=== PATIENT | female | born 1990 | race Caucasian/White ===

== ENCOUNTER 2019-02-11 14:52 | Emergency (ER) | payer BC ==
--- NOTE | 2019-02-11 15:24 | ERPHSYRPT ---
- History of Present Illness Time Seen by Provider: 02/11/19 15:22 Source: patient Exam Limitations: no limitations Patient Subjective Stated Complaint: pt here for pain to both arms from shoulder that radiates to middle of back for 4 days, no injury, no cough or fever Triage Nursing Assessment: pt alert, walked in, resp easy, skin w/d/p. no bruising or abrasions noted, moves all ext well Physician History: pt here for pain to both arms from shoulder that radiates to middle of back for 4 days, no injury, no cough or fever. No heavy pressure type of chest pain Timing/Duration: today Associated Symptoms: denies symptoms Allergies/Adverse Reactions: Penicillins Allergy (Verified 02/11/19 15:11) Rash Home Medications: No Home Meds [No Home Meds] 02/16/14 [History] Hx Tetanus, Diphtheria Vaccination/Date Given: Yes Hx Influenza Vaccination/Date Given: No Hx Pneumococcal Vaccination/Date Given: No Immunizations Up to Date: Yes - Review of Systems Constitutional: No Fever, No Chills Eyes: No Symptoms Ears, Nose, & Throat: No Symptoms Respiratory: No Cough, No Dyspnea Cardiac: No Chest Pain, No Edema, No Syncope Abdominal/Gastrointestinal: No Abdominal Pain, No Nausea, No Vomiting, No Diarrhea Genitourinary Symptoms: No Dysuria Musculoskeletal: Other (pain and tingling and numbness on both arms going to both hands), No Back Pain, No Neck Pain Skin: No Rash Neurological: No Dizziness, No Focal Weakness, No Sensory Changes Psychological: No Symptoms Endocrine: No Symptoms All Other Systems: Reviewed and Negative - Past Medical History Pertinent Past Medical History: No Neurological History: No Pertinent History ENT History: No Pertinent History Cardiac History: No Pertinent History Respiratory History: No Pertinent History Endocrine Medical History: No Pertinent History Musculoskeletal History: No Pertinent History GI Medical History: No Pertinent History History: No Pertinent History Psycho-Social History: No Pertinent History Female Reproductive Disorders: No Pertinent History - Past Surgical History Past Surgical History: No Neuro Surgical History: No Pertinent History Cardiac: No Pertinent History Respiratory: No Pertinent History Gastrointestinal: No Pertinent History Genitourinary: No Pertinent History Musculoskeletal: No Pertinent History Female Surgical History: No Pertinent History - Social History Smoking Status: Current every day smoker How long have you smoked: 6 Exposure to second hand smoke: Yes Drug Use: none Patient Lives Alone: No - Female History Hx Last Menstrual Period: january Hx Now: No - Nursing Vital Signs Nursing Vital Signs: Initial Vital Signs Temperature 99.3 F 02/11/19 15:06 Pulse Rate 97 H 02/11/19 15:06 Respiratory Rate 16 02/11/19 15:06 Blood Pressure 144/92 02/11/19 15:06 O2 Sat by Pulse Oximetry 99 02/11/19 15:06 Pain Scale Pain Intensity 5 - Physical Exam General Appearance: no apparent distress, alert Eye Exam: PERRL/EOMI, eyes nml inspection Ears, Nose, Throat Exam: normal ENT inspection, TMs normal, pharynx normal, moist mucous membranes Neck Exam: normal inspection, non-tender, supple, full range of motion Respiratory Exam: normal breath sounds, lungs clear, No respiratory distress Cardiovascular Exam: regular rate/rhythm, normal heart sounds, normal peripheral pulses Gastrointestinal/Abdomen Exam: soft, normal bowel sounds, No tenderness, No mass Back Exam: normal inspection, normal range of motion, No CVA tenderness, No vertebral tenderness Extremity Exam: normal inspection, normal range of motion, pelvis stable Neurologic Exam: alert, oriented x 3, cooperative, normal mood/affect, nml cerebellar function, nml station & gait, sensation nml, No motor deficits Skin Exam: normal color, warm, dry, No rash Lymphatic Exam: No adenopathy SpO2: 99 - Course Nursing assessment & vital signs reviewed: Yes EKG Interpreted by Me: Sinus Rhythm Ordered Tests: Active Orders 24 hr Category Date Time Status EKG-ER Only STAT Care 02/11/19 15:14 Active CBC W DIFF Stat Lab 02/11/19 15:29 Completed CMP Stat Lab 02/11/19 15:29 Completed Manual Differential NC Stat Lab 02/11/19 15:29 Completed TROPONIN Stat Lab 02/11/19 15:29 Completed Lab/Rad Data: Laboratory Result Diagrams 02/11/19 15:29 02/11/19 15:29 Laboratory Results 02/11/19 02/11/19 Range/Units 15:29 15:29 WBC 10.4 (4.0-10.5) K/mm3 RBC 4.82 (4.1-5.4) M/mm3 Hgb 14.5 (12.0-16.0) gm/dl Hct 44.8 (35-47) % MCV 92.9 (78-100) fl MCH 30.1 (26-32) pg MCHC 32.4 (32-36) g/dl RDW 13.8 (11.5-14.0) % Plt Count 234 (150-450) K/mm3 MPV 11.3 H (6-9.5) fl Sodium 140 (137-145) mmol/L Potassium 4.5 (3.5-5.1) mmol/L Chloride 109 H (98-107) mmol/L Carbon Dioxide 24 (22-30) mmol/L Anion Gap 12.2 (5-15) MEQ/L BUN 13 (7-17) mg/dL Creatinine 0.81 (0.52-1.04) mg/dL Estimated GFR > 60.0 ML/MIN Glucose 107 H (74-106) mg/dL Calcium 9.8 (8.4-10.2) mg/dL Total Bilirubin 0.30 (0.2-1.3) mg/dL AST 15 (14-36) U/L ALT 22 (0-35) U/L Alkaline Phosphatase 70 (38-126) U/L Troponin I < 0.012 (0.000-0.034) ng/mL Serum Total Protein 8.0 (6.3-8.2) g/dL Albumin 4.2 (3.5-5.0) g/dL - Progress Progress: improved, pain not gone completely Counseled pt/family regarding: lab results, diagnosis, need for follow-up - Departure Departure Disposition: Home Clinical Impression: Pain in both upper arms Condition: Stable Critical Care Time: No Referrals: ELDA FREITAS [Primary Care Provider] - Additional Instructions: During your these, ER visits we have ruled out serious cause of bilateral arm pain, as well as we also have ruled out any heart-related problems. Please followup with your primary care physician for further workup. PRIYANKA RUIZ GRAEME GAO was seen on 02/11/19 n the Emergency Room. At that time you were treated for an emergent condition, during your visit Laboratory, Radiology and/or other procedures may have been ordered. It is very important that you follow-up with your Primary Care Physician ELDA FREITAS within the next 24-48 hours to review your Emergency Room visit and the final results of testing that was ordered. Some test results such as Urine Cultures, Blood Cultures, and other cultures if ordered will not be finalized for 24-48 hours. If you do not have a Primary Care Provider please call the medical records department at [phone] ext [phone] to obtain a copy of your results or you may sign into our patient portal to obtain these results by visiting us @ [email or web address] and completing the following steps: 1. Click on the Patient Portal link 2. Click the Patient Self Enrollment Link to complete the enrollment form and entering your 3. Once the enrollment form is completed you will receive an email with a temporary ID and password at the email address you provided. 4. Next choose a user name and password. Your user name must be at least 4 characters long and your password must be at least 4 characters long. 5. Choose a security question from the list and provide your answer to the question. If you already have signed into the Health Portal you may access your Health Care Information 23/05 by the following steps: 1. Login to our website @ [email or web address] 2. Enter your original user name and password. FAQS The [facility] Health Portal is an online tool that contains your Lab Results, Radiology Reports, Visit History, Discharge Instructions and Health Summary Lab and Radiology Results will not be available for 72 hours on the portal. The Portal is a secure site, passwords are encryted and URLs are re-written so they cannot be copied and pasted. You and authorized family members are the only ones who can access your Portal. Also there is a timeout feature that protects your information if you leave the Portal page open. If you have technical difficulty please use the Contact Us link on the page this will allow you to submit any questions you have regarding the Portal or you may contact the Medical Record Department at [phone] ext [phone].
[2019-02-11 15:48] LABS: Hematocrit 44.8 % (35-47); Hemoglobin 14.5 gm/dl (12.0-16.0); Mean Cell Volume 92.9 fl (78-100); Mean Corpuscular Hemoglobin 30.1 pg (26-32); Mean Corpuscular Hgb Concent. 32.4 g/dl (32-36); Mean Platelet Volume 11.3 fl (6-9.5); Platelet Count 234 K/mm3 (150-450); Red Blood Count 4.82 M/mm3 (4.1-5.4); Red Cell Distribution Width 13.8 % (11.5-14.0); White Blood Count 10.4 K/mm3 (4.0-10.5)
[2019-02-11 15:53] LABS: ALBUMIN 4.2 g/dL (3.5-5.0); ALKALINE PHOSPHATASE 70 U/L (38-126); ANION GAP 12.2 MEQ/L (5-15); BLOOD UREA NITROGEN 13 mg/dL (7-17); CHLORIDE 109 mmol/L (98-107); Calcium 9.8 mg/dL (8.4-10.2); Carbon Dioxide 24 mmol/L (22-30); Creatinine 1 0.81 mg/dL (0.52-1.04); Glucose 107 mg/dL (74-106); Potassium 4.5 mmol/L (3.5-5.1); SGOT/AST 15 U/L (14-36); SGPT/ALT 22 U/L (0-35); SODIUM 140 mmol/L (137-145)
[2019-02-11 15:57] LABS: TROPONIN < 0.012 ng/mL (0.000-0.034)
[2019-02-11 16:18] VITALS: BP 114/75; PULSE 88; O2SAT 98
[2019-02-11 16:28] LABS: BAND 2 % (0.0-2.0); Eosinophil 1 % (0.00-3.0); Lymphocytes 28 % (24-44); Monocyte 7 % (0.0-12.0); Neutrophils 62 % (36.0-66.0); Total Cells Counted 100
[2019-02-11 16:30] LABS: Platelet Estimate NORMAL (NORMAL)
== END 2019-02-11 16:18 | disposition home or self-care (01) ==
LOC: ED 14:52
DX: M79.622 Pain in left upper arm (principal); M79.621 Pain in right upper arm
CPT/HCPCS: 36415; 80053; 84484; 85025; 93005; 99284

== ENCOUNTER 2019-02-23 11:40 | Emergency (ER) | payer BC ==
[2019-02-23 12:29] LABS: BASOPHIL % 0.3 % (0.0-0.4); Basophil (Absolute #) 0.04 (0-0.4); Eosinophil % 0.5 % (0.00-5.0); Eosinophil (Absolute #) 0.07 (0-0.5); Granulocyte Absolute (ANC) 10.52 (1.4-6.9); Hematocrit 45.4 % (35-47); Hemoglobin 14.9 gm/dl (12.0-16.0); Lymphocytes % 18.8 % (24.0-44.0); Mean Cell Volume 91.2 fl (78-100); Mean Corpuscular Hemoglobin 29.9 pg (26-32); Mean Corpuscular Hgb Concent. 32.8 g/dl (32-36); Mean Platelet Volume 10.2 fl (6-9.5); Monocyte (Absolute #) 0.61 (0.0-1.3); Monocytes % 4.4 % (0.0-12.0); Platelet Count 316 K/mm3 (150-450); Red Blood Count 4.98 M/mm3 (4.1-5.4); Red Cell Distribution Width 13.6 % (11.5-14.0); White Blood Count 13.8 K/mm3 (4.0-10.5)
[2019-02-23 12:37] LABS: ALBUMIN 4.6 g/dL (3.5-5.0); ALKALINE PHOSPHATASE 78 U/L (38-126); ANION GAP 18.4 MEQ/L (5-15); BLOOD UREA NITROGEN 13 mg/dL (7-17); CHLORIDE 105 mmol/L (98-107); Calcium 10.3 mg/dL (8.4-10.2); Carbon Dioxide 22 mmol/L (22-30); Creatinine 1 0.74 mg/dL (0.52-1.04); Glucose 103 mg/dL (74-106); Potassium 4.1 mmol/L (3.5-5.1); SGOT/AST 21 U/L (14-36); SGPT/ALT 26 U/L (0-35); SODIUM 141 mmol/L (137-145); Total Protein 8.9 g/dL (6.3-8.2)
[2019-02-23 13:54] VITALS: O2SAT 97
[2019-02-23 13:56] LABS: Appearance SLIGHTLY CLOUDY (CLEAR); Bacteria FEW /HPF (NEGATIVE); Bilirubin NEGATIVE (NEGATIVE); Blood LARGE Ery/ul (0-5); Epithelial Cells RARE /HPF (FEW); Glucose NEGATIVE (NEGATIVE); Ketones NEGATIVE (NEGATIVE); Leukocyte Esterase MODERATE (NEGATIVE); Mucus SLIGHT /HPF (NEGATIVE); Nitrite NEGATIVE (NEGATIVE); Protein,Urine Dip 30 (Negative); Specific Gravity 1.017 (1.005-1.025); Urobilinogen NEGATIVE mg/dL (0-1)
[2019-02-23 13:58] LABS: RBC >101 /HPF (0-2)
[2019-02-23] MEDS ORDERED: ROCEPHIN 1 Gm-D5w 50 ml Bag** 1 G/50 ML IVPB IV STA (14:09)
[2019-02-23] MEDS ORDERED: Rocephin 1000 MG INJ IM ONE (14:12)
[2019-02-23] MEDS ORDERED: Rocephin 1000 MG INJ ONE (14:15)
--- NOTE | 2019-02-23 15:00 | ERPHSYRPT ---
- History of Present Illness Source: patient Exam Limitations: no limitations Patient Subjective Stated Complaint: states feeling "Blah" started 2 new meds on (lisinopril,citalopram) nausea with no vomiting. has had nausea witn no vomiting. Triage Nursing Assessment: alert and oriented, tearful. states started new meds and now is feeling 'Blah" states has had burning in her belly.. started diclofenac for her back pain. denies urinary symptoms.. no fever. Physician History: Pt states, she is not feeling well. She states, had palpitations, fatigue and feeling "blah". Pt denies F/C/S. No chest discomfort. Pt denies N/V/D. Has some abdominal discomfort. Timing/Duration: today Activites at Onset: none Quality: burning Onset Location: abdominal pain Severity of Pain-Max: mild Severity of Pain-Current: mild Prior abdominal problems: none Modifying Factors: Improves With: nothing Associated Symptoms: abdominal pain Allergies/Adverse Reactions: Penicillins Allergy (Verified 02/11/19 15:11) Rash Home Medications: No Home Meds [No Home Meds] 02/16/14 [History] Hx Tetanus, Diphtheria Vaccination/Date Given: Yes Hx Influenza Vaccination/Date Given: No Hx Pneumococcal Vaccination/Date Given: No - Review of Systems Constitutional: Lethargy, Malaise Eyes: No Symptoms Ears, Nose, & Throat: No Symptoms Respiratory: No Cough, No Dyspnea Cardiac: No Chest Pain, No Edema, No Syncope Abdominal/Gastrointestinal: Abdominal Pain, No Nausea, No Vomiting, No Diarrhea Genitourinary Symptoms: No Dysuria Musculoskeletal: No Back Pain, No Neck Pain Neurological: No Dizziness, No Focal Weakness, No Sensory Changes Psychological: Anxiety, Depression - Past Medical History Pertinent Past Medical History: Yes Neurological History: No Pertinent History ENT History: No Pertinent History Cardiac History: Hypertension Respiratory History: No Pertinent History Endocrine Medical History: No Pertinent History Musculoskeletal History: No Pertinent History GI Medical History: No Pertinent History History: No Pertinent History Psycho-Social History: Anxiety, Depression Female Reproductive Disorders: No Pertinent History - Past Surgical History Past Surgical History: Yes Neuro Surgical History: No Pertinent History Cardiac: No Pertinent History Respiratory: No Pertinent History Gastrointestinal: No Pertinent History Genitourinary: No Pertinent History Musculoskeletal: No Pertinent History Female Surgical History: No Pertinent History - Social History Smoking Status: Current every day smoker How long have you smoked: 6 Exposure to second hand smoke: No Drug Use: none Patient Lives Alone: No - Female History Hx Last Menstrual Period: now Hx Now: No - Nursing Vital Signs Nursing Vital Signs: Initial Vital Signs Temperature 97.8 F 02/23/19 12:02 Pulse Rate 112 H 02/23/19 12:02 Respiratory Rate 18 02/23/19 12:02 Blood Pressure 149/102 02/23/19 12:02 O2 Sat by Pulse Oximetry 98 02/23/19 12:02 Pain Scale Pain Intensity 3 - Physical Exam General Appearance: mild distress Eye Exam: PERRL/EOMI, eyes nml inspection Ears, Nose, Throat Exam: normal ENT inspection, TMs normal, pharynx normal, moist mucous membranes Neck Exam: normal inspection, non-tender, supple, full range of motion Respiratory Exam: normal breath sounds, lungs clear, No respiratory distress Cardiovascular Exam: regular rate/rhythm, normal heart sounds, normal peripheral pulses, tachycardia Gastrointestinal/Abdomen Exam: soft, No tenderness, No mass Extremity Exam: normal inspection, normal range of motion, pelvis stable Neurologic Exam: alert, oriented x 3, cooperative, die try out worker II-XII nml as tested, normal mood/affect, sensation nml, No motor deficits SpO2: 97 - Course Nursing assessment & vital signs reviewed: Yes Ordered Tests: Active Orders 24 hr Category Date Time Status CBC W DIFF Stat Lab 02/23/19 12:18 Completed CMP Stat Lab 02/23/19 12:18 Completed Urinalysis with Microscopy Stat Lab 02/23/19 13:41 Completed Medication Summary Discontinued Medications Generic Name Dose Route Start Last Admin Trade Name Heather PRN Reason Stop Dose Admin Ceftriaxone Sodium 1,000 mg 02/23/19 14:12 02/23/19 14:24 Rocephin 1000 Mg Inj IM 02/23/19 14:13 1,000 mg STAT ONE Administration Ceftriaxone Sodium Confirm 02/23/19 14:15 Rocephin 1000 Mg Inj Administered 02/23/19 14:16 Dose 1,000 mg .ROUTE .STK-MED ONE Ceftriaxone Sodium/Dextrose 1 g in 50 mls @ 100 mls/hr 02/23/19 14:09 14:13 Rocephin 1 Gm-D5w 50 Ml Bag IV 02/23/19 14:38 Not Given STAT STA Lab/Rad Data: Laboratory Result Diagrams 02/23/19 12:18 02/23/19 12:18 Laboratory Results 02/23/19 02/23/19 02/23/19 Range/Units 13:41 12:18 12:18 WBC 13.8 H (4.0-10.5) K/mm3 RBC 4.98 (4.1-5.4) M/mm3 Hgb 14.9 (12.0-16.0) gm/dl Hct 45.4 (35-47) % MCV 91.2 (78-100) fl MCH 29.9 (26-32) pg MCHC 32.8 (32-36) g/dl RDW 13.6 (11.5-14.0) % Plt Count 316 (150-450) K/mm3 MPV 10.2 H (6-9.5) fl Gran % 76.0 H (36.0-66.0) % Eos # (Auto) 0.07 (0-0.5) Absolute Lymphs (auto) 2.60 (1.0-4.6) Absolute Monos (auto) 0.61 (0.0-1.3) Lymphocytes % 18.8 L (24.0-44.0) % Monocytes % 4.4 (0.0-12.0) % Eosinophils % 0.5 (0.00-5.0) % Basophils % 0.3 (0.0-0.4) % Absolute Granulocytes 10.52 H (1.4-6.9) Basophils # 0.04 (0-0.4) Sodium 141 (137-145) mmol/L Potassium 4.1 (3.5-5.1) mmol/L Chloride 105 (98-107) mmol/L Carbon Dioxide 22 (22-30) mmol/L Anion Gap 18.4 H (5-15) MEQ/L BUN 13 (7-17) mg/dL Creatinine 0.74 (0.52-1.04) mg/dL Estimated GFR > 60.0 ML/MIN Glucose 103 (74-106) mg/dL Calcium 10.3 H (8.4-10.2) mg/dL Total Bilirubin 0.50 (0.2-1.3) mg/dL AST 21 (14-36) U/L ALT 26 (0-35) U/L Alkaline Phosphatase 78 (38-126) U/L Serum Total Protein 8.9 H (6.3-8.2) g/dL Albumin 4.6 (3.5-5.0) g/dL Urine Color YELLOW (YELLOW) Urine Appearance SLIGHTLY CLOUDY (CLEAR) Urine pH 5.0 (5-6) Ur Specific [place] 1.017 (1.005-1.025) Urine Protein 30 (Negative) Urine Ketones NEGATIVE (NEGATIVE) Urine Blood LARGE (0-5) Stevo/ul Urine Nitrite NEGATIVE (NEGATIVE) Urine Bilirubin NEGATIVE (NEGATIVE) Urine Urobilinogen NEGATIVE (0-1) mg/dL Ur Leukocyte Esterase MODERATE (NEGATIVE) Urine WBC (Auto) 11-15 (0-5) /HPF Urine RBC (Auto) >101 (0-2) /HPF U Epithel Cells (Auto) RARE (FEW) /HPF Urine Bacteria (Auto) FEW (NEGATIVE) /HPF Urine Mucus (Auto) SLIGHT (NEGATIVE) /HPF Urine Glucose NEGATIVE (NEGATIVE) mg/dL - Progress Progress: improved Air Movement: good Progress Note: 02/23/19 15:02 Pt had lab work done, that showed elevated WBCs. Urinalysis showed UTI. Pt did get Rocephin IM, and will get a prescription for Omnicef BID, e-scribed. Pt is cleared to d/c to home, and should f/u with her PCP in a week. Blood Culture(s) Obtained: No Antibiotics given: Yes Will see patient in: office Counseled pt/family regarding: need for follow-up - Departure Departure Disposition: Home Clinical Impression: UTI (urinary tract infection) Condition: Stable Critical Care Time: No Referrals: ELDA FREITAS [Primary Care Provider] - Additional Instructions: Finish ABX as ordered. F/U with PCP in a week. Prescriptions: Cefdinir [Omnicef] 300 mg PO BID 7 Days #14 capsule
[2019-02-23 15:18] VITALS: BP 122/89; PULSE 76
== END 2019-02-23 15:17 | disposition home or self-care (01) ==
LOC: ED 11:40
DX: N39.0 Urinary tract infection, site not specified (principal)
CPT/HCPCS: 36415; 80053; 81001; 85025; 96372; 99284; J0696

== ENCOUNTER 2019-05-22 23:04 | Emergency (ER) | payer BC ==
[2019-05-22 23:36] VITALS: O2SAT 98
--- NOTE | 2019-05-22 23:54 | ERPHSYRPT ---
- History of Present Illness Time Seen by Provider: 05/22/19 23:35 Historian: patient Exam Limitations: no limitations Patient Subjective Stated Complaint: states shes having abdominal discomfort nad was concerned it was appendix Triage Nursing Assessment: pt is alertn ad orientedx3, able to ambulte by self, pupilsperrla2, bowel sounds present x4, no rebound tenderness noted,pulses present upper and lower extremities. skin warm dry and intact. Physician History: Started yesterday; right lower pain/discomfort. Not "passing gas" - "not pooping"; denies nausea, vomiting. No other complaints. Timing/Duration: yesterday Activities at Onset: none Quality: fullness, pressure Abdominal Pain Onset Location: RLQ Pain Radiation: no radiation Severity of Pain-Max: mild Severity of Pain-Current: mild Modifying Factors: Improves With: nothing Associated Symptoms: denies symptoms Previous symptoms: no prior history Allergies/Adverse Reactions: Penicillins Allergy (Verified 02/11/19 15:11) Rash Home Medications: No Home Meds [No Home Meds] 02/16/14 [History] Hx Tetanus, Diphtheria Vaccination/Date Given: Yes Hx Influenza Vaccination/Date Given: No Hx Pneumococcal Vaccination/Date Given: No Immunizations Up to Date: Yes - Review of Systems Constitutional: No Symptoms Eyes: No Symptoms Respiratory: No Symptoms Abdominal/Gastrointestinal: Abdominal Pain (mild right) Genitourinary Symptoms: No Symptoms All Other Systems: Reviewed and Negative - Past Medical History Pertinent Past Medical History: Yes Neurological History: No Pertinent History ENT History: No Pertinent History Cardiac History: Hypertension Respiratory History: No Pertinent History Endocrine Medical History: No Pertinent History Musculoskeletal History: No Pertinent History GI Medical History: No Pertinent History History: No Pertinent History Psycho-Social History: Anxiety, Depression Female Reproductive Disorders: No Pertinent History - Past Surgical History Past Surgical History: Yes Neuro Surgical History: No Pertinent History Cardiac: No Pertinent History Respiratory: No Pertinent History Gastrointestinal: No Pertinent History Genitourinary: No Pertinent History Musculoskeletal: No Pertinent History Female Surgical History: No Pertinent History - Social History Smoking Status: Current every day smoker How long have you smoked: 6 Exposure to second hand smoke: No Drug Use: none Patient Lives Alone: No - Female History Hx Now: No - Nursing Vital Signs Nursing Vital Signs: Initial Vital Signs Temperature 99 F 05/22/19 23:05 Pulse Rate 92 H 05/22/19 23:05 Respiratory Rate 16 05/22/19 23:05 Blood Pressure 155/92 05/22/19 23:05 O2 Sat by Pulse Oximetry 98 05/22/19 23:05 Pain Scale Pain Intensity 0 - Physical Exam General Appearance: no apparent distress Ears, Nose, Throat Exam: normal ENT inspection Respiratory Exam: normal breath sounds, lungs clear Cardiovascular Exam: regular rate/rhythm, normal heart sounds Gastrointestinal/Abdomen Exam: soft, No guarding, No rebound Pelvic Exam: not done Neurologic Exam: alert, oriented x 3 Skin Exam: normal color, warm, dry SpO2: 98 Ordered Tests: Active Orders 24 hr Category Date Time Status CBC W DIFF Stat Lab 05/22/19 23:55 Completed CMP Stat Lab 05/22/19 23:55 Completed HCG,QUALITATIVE URINE Stat Lab 05/22/19 23:45 Completed UA W/RFX UR CULTURE Stat Lab 05/22/19 23:45 Completed Medication Summary Discontinued Medications Generic Name Dose Route Start Last Admin Trade Name Freq PRN Reason Stop Dose Admin Sodium Chloride 1,000 mls @ 999 mls/hr 05/22/19 23:57 05/23/19 00:01 Sodium Chloride 0.9% 1000 Ml IV 05/23/19 00:57 999 mls/hr .Q1H1M STA Administration Sodium Chloride Confirm 05/23/19 00:01 Sodium Chloride 0.9% 1000 Ml Administered 05/23/19 00:02 Dose 1,000 mls @ ud .ROUTE .STK-MED ONE Lab/Rad Data: Laboratory Result Diagrams 05/22/19 23:55 05/22/19 23:55 Laboratory Results 05/22/19 05/22/19 05/22/19 Range/Units 23:55 23:55 23:45 WBC 13.8 H (4.0-10.5) K/mm3 RBC 4.87 (4.1-5.4) M/mm3 Hgb 15.2 (12.0-16.0) gm/dl Hct 45.2 (35-47) % MCV 92.8 (78-100) fl MCH 31.2 (26-32) pg MCHC 33.6 (32-36) g/dl RDW 13.8 (11.5-14.0) % Plt Count 326 (150-450) K/mm3 MPV 10.2 H (6-9.5) fl Gran % 69.8 H (36.0-66.0) % Eos # (Auto) 0.21 (0-0.5) Absolute Lymphs (auto) 3.03 (1.0-4.6) Absolute Monos (auto) 0.89 (0.0-1.3) Lymphocytes % 22.0 L (24.0-44.0) % Monocytes % 6.4 (0.0-12.0) % Eosinophils % 1.5 (0.00-5.0) % Basophils % 0.3 (0.0-0.4) % Absolute Granulocytes 9.63 H (1.4-6.9) Basophils # 0.04 (0-0.4) Sodium 139 (137-145) mmol/L Potassium 4.0 (3.5-5.1) mmol/L Chloride 108 H (98-107) mmol/L Carbon Dioxide 22 (22-30) mmol/L Anion Gap 12.4 (5-15) MEQ/L BUN 12 (7-17) mg/dL Creatinine 0.74 (0.52-1.04) mg/dL Estimated GFR > 60.0 ML/MIN Glucose 106 (74-106) mg/dL Calcium 9.8 (8.4-10.2) mg/dL Total Bilirubin 0.40 (0.2-1.3) mg/dL AST 18 (14-36) U/L ALT 22 (0-35) U/L Alkaline Phosphatase 78 (38-126) U/L Serum Total Protein 8.1 (6.3-8.2) g/dL Albumin 4.3 (3.5-5.0) g/dL Urine Color YELLOW (YELLOW) Urine Appearance CLOUDY (CLEAR) Urine pH 6.0 (5-6) Ur Specific [place] 1.023 (1.005-1.025) Urine Protein NEGATIVE (Negative) Urine Ketones NEGATIVE (NEGATIVE) Urine Blood MODERATE (0-5) Stevo/ul Urine Nitrite NEGATIVE (NEGATIVE) Urine Bilirubin NEGATIVE (NEGATIVE) Urine Urobilinogen 2 (0-1) mg/dL Ur Leukocyte Esterase NEGATIVE (NEGATIVE) Urine WBC (Auto) 0-2 (0-5) /HPF Urine RBC (Auto) 3-5 (0-2) /HPF U Epithel Cells (Auto) RARE (FEW) /HPF Urine Bacteria (Auto) NONE (NEGATIVE) /HPF Urine Mucus (Auto) SLIGHT (NEGATIVE) /HPF Urine Culture Reflexed NO (NO) Urine Glucose NEGATIVE (NEGATIVE) mg/dL Urine HCG, Qual (Negative) 05/22/19 Range/Units 23:45 WBC (4.0-10.5) K/mm3 RBC (4.1-5.4) M/mm3 Hgb (12.0-16.0) gm/dl Hct (35-47) % MCV (78-100) fl MCH (26-32) pg MCHC (32-36) g/dl RDW (11.5-14.0) % Plt Count (150-450) K/mm3 MPV (6-9.5) fl Gran % (36.0-66.0) % Eos # (Auto) (0-0.5) Absolute Lymphs (auto) (1.0-4.6) Absolute Monos (auto) (0.0-1.3) Lymphocytes % (24.0-44.0) % Monocytes % (0.0-12.0) % Eosinophils % (0.00-5.0) % Basophils % (0.0-0.4) % Absolute Granulocytes (1.4-6.9) Basophils # (0-0.4) Sodium (137-145) mmol/L Potassium (3.5-5.1) mmol/L Chloride (98-107) mmol/L Carbon Dioxide (22-30) mmol/L Anion Gap (5-15) MEQ/L BUN (7-17) mg/dL Creatinine (0.52-1.04) mg/dL Estimated GFR ML/MIN Glucose (74-106) mg/dL Calcium (8.4-10.2) mg/dL Total Bilirubin (0.2-1.3) mg/dL AST (14-36) U/L ALT (0-35) U/L Alkaline Phosphatase (38-126) U/L Serum Total Protein (6.3-8.2) g/dL Albumin (3.5-5.0) g/dL Urine Color (YELLOW) Urine Appearance (CLEAR) Urine pH (5-6) Ur Specific [place] (1.005-1.025) Urine Protein (Negative) Urine Ketones (NEGATIVE) Urine Blood (0-5) Stevo/ul Urine Nitrite (NEGATIVE) Urine Bilirubin (NEGATIVE) Urine Urobilinogen (0-1) mg/dL Ur Leukocyte Esterase (NEGATIVE) Urine WBC (Auto) (0-5) /HPF Urine RBC (Auto) (0-2) /HPF U Epithel Cells (Auto) (FEW) /HPF Urine Bacteria (Auto) (NEGATIVE) /HPF Urine Mucus (Auto) (NEGATIVE) /HPF Urine Culture Reflexed (NO) Urine Glucose (NEGATIVE) mg/dL Urine HCG, Qual NEGATIVE (Negative) - Progress Progress: re-examined (Abdomen soft, no rebound. Discussed CT vs wait and see - Appy not likely) - Departure Departure Disposition: Home Clinical Impression: Abdominal pain of unknown etiology Condition: Stable Critical Care Time: No Referrals: TORI CARR NP [Primary Care Provider] - Instructions: Acute Abdomen (Belly Pain), Adult (DC) Additional Instructions: Follow up with your Primary Care Provider in the moning as planned and discuss your ER visit and option to wait and see rather than a CT scan when an emergent intra-abdominal process does not appear likely. Return to ER if, meanwhile, you a re running a fever of 101 or higher or vomiting more than 3 times in an hour.
[2019-05-22] MEDS ORDERED: Sodium Chloride 0.9% 1000 ML 1,000 ML IV STA (23:57)
[2019-05-23] MEDS ORDERED: Sodium Chloride 0.9% 1000 ML 1,000 ML ONE (00:01)
[2019-05-23 00:02] LABS: BASOPHIL % 0.3 % (0.0-0.4); Basophil (Absolute #) 0.04 (0-0.4); Eosinophil % 1.5 % (0.00-5.0); Eosinophil (Absolute #) 0.21 (0-0.5); Granulocyte Absolute (ANC) 9.63 (1.4-6.9); Granulocytes % 69.8 % (36.0-66.0); Hematocrit 45.2 % (35-47); Hemoglobin 15.2 gm/dl (12.0-16.0); Lymphocyte (Absolute #) 3.03 (1.0-4.6); Mean Cell Volume 92.8 fl (78-100); Mean Corpuscular Hemoglobin 31.2 pg (26-32); Mean Corpuscular Hgb Concent. 33.6 g/dl (32-36); Mean Platelet Volume 10.2 fl (6-9.5); Monocyte (Absolute #) 0.89 (0.0-1.3); Monocytes % 6.4 % (0.0-12.0); Platelet Count 326 K/mm3 (150-450); Red Blood Count 4.87 M/mm3 (4.1-5.4); Red Cell Distribution Width 13.8 % (11.5-14.0); White Blood Count 13.8 K/mm3 (4.0-10.5)
[2019-05-23 00:19] LABS: Appearance CLOUDY (CLEAR); Bilirubin NEGATIVE (NEGATIVE); Blood MODERATE Ery/ul (0-5); Epithelial Cells RARE /HPF (FEW); Glucose NEGATIVE (NEGATIVE); Ketones NEGATIVE (NEGATIVE); Leukocyte Esterase NEGATIVE (NEGATIVE); Mucus SLIGHT /HPF (NEGATIVE); Nitrite NEGATIVE (NEGATIVE); Protein,Urine Dip NEGATIVE (Negative); Specific Gravity 1.023 (1.005-1.025); Urobilinogen 2 mg/dL (0-1); WBC 0-2 /HPF (0-5)
[2019-05-23 00:22] LABS: ALBUMIN 4.3 g/dL (3.5-5.0); ALKALINE PHOSPHATASE 78 U/L (38-126); ANION GAP 12.4 MEQ/L (5-15); BLOOD UREA NITROGEN 12 mg/dL (7-17); CHLORIDE 108 mmol/L (98-107); Calcium 9.8 mg/dL (8.4-10.2); Carbon Dioxide 22 mmol/L (22-30); Creatinine 1 0.74 mg/dL (0.52-1.04); Glucose 106 mg/dL (74-106); SGOT/AST 18 U/L (14-36); SGPT/ALT 22 U/L (0-35); SODIUM 139 mmol/L (137-145); Total Protein 8.1 g/dL (6.3-8.2)
[2019-05-23 01:21] VITALS: BP 122/79; PULSE 81
== END 2019-05-23 01:27 | disposition home or self-care (01) ==
LOC: ED 23:04
DX: R10.31 Right lower quadrant pain (principal); I10 Essential (primary) hypertension
CPT/HCPCS: 36415; 80053; 81001; 84703; 85025; 96360; 99284